=== PATIENT | female | born 1960 | race Caucasian/White ===

== ENCOUNTER 2018-03-14 02:37 | Emergency (ER) | payer SELFPAY ==
[2018-03-14] MEDS ORDERED: predniSONE 20 MG TAB PO ONE (03:05)
[2018-03-14] MEDS ORDERED: SODIUM CHLORIDE 0.9% 1000ML 1,000 ML IVS ONE (03:05)
[2018-03-14] MEDS ORDERED: IPRATROPIUM/ALBUTEROL 3 ML VIAL NEB ONE (03:05)
[2018-03-14] MEDS ORDERED: PROMETHAZINE HCL INJ 25 MG in SODIUM CHLORIDE 0.9% 50ML 50 ML IVPB ONE (03:05)
[2018-03-14] MEDS ORDERED: PROMETHAZINE HCL INJ 25 MG/ML VIAL ONE (03:10)
[2018-03-14] MEDS ORDERED: SODIUM CHLORIDE 0.9% 50ML 50 ML ONE (03:11)
--- NOTE | 2018-03-14 03:12 | ED.PDOC ---
History of Present Illness - General Chief Complaint: GI Problem Stated Complaint: dizzy, N/V/D Time Seen by Provider: 03/14/18 02:53 Source: patient Exam Limitations: no limitations - History of Present Illness Initial Comments: The patient is a 57-year-old female presenting to emergency room secondary to an episode of vertigo that started when she got up in the middle of the night to go use the bathroom. She reports that she was sitting on the toilet and look down and became dizzy all of a sudden. She reports that the room started to spend. She tried to stand up and fell backwards. She caught herself on the shower curtain and did not hurt herself. She subsequently had a couple of episodes of vomiting and now has something of a headache with mild residual dizziness. No confusion. No other neurological changes. She has recently had a viral respiratory tract infection and she does have some wheezing. She does have a history of COPD. She does have a cough. On neurological testing head and pulse exam fails to lateralized to one side. No obvious abnormal nystagmus at this time. No significant vertical skew deviation. She does have increased pressure behind bilateral tympanic membranes. Nares are red with clear rhinorrhea. The patient does have some scattered wheezes. Timing/Duration: 1 hour Severity: moderate Improving Factors: nothing Worsening Factors: movement Associated Symptoms: cough, loss of appetite, nausea/vomiting Allergies/Adverse Reactions: Allergies Aspirin Allergy (Verified 03/14/18 02:57) Codeine Allergy (Verified 03/14/18 02:57) Penicillins Allergy (Verified 03/14/18 02:57) Home Medications: Ambulatory Orders ALPRAZolam [Xanax] 0.25 mg PO PRN PRN 03/14/18 Furosemide [Lasix] 40 mg PO DAILY PRN 03/14/18 Meclizine HCl 25 mg PO Q6H PRN #20 tab 03/14/18 predniSONE [Prednisone] 20 mg PO DAILY #3 tab 03/14/18 Review of Systems - Review of Systems Constitutional: States: malaise EENTM: States: nose congestion Respiratory: States: cough Cardiology: States: no symptoms reported Gastrointestinal/Abdominal: States: nausea, vomiting Genitourinary: States: no symptoms reported Musculoskeletal: States: no symptoms reported Skin: States: no symptoms reported Neurological: States: headache Endocrine: States: no symptoms reported Hematologic/Lymphatic: States: no symptoms reported All other Systems: No Change from Baseline Past Medical History (General) - Patient Medical History Hx Seizures: No Hx Stroke: No Hx Dementia: No Hx Asthma: Yes Hx of COPD: Yes Hx Cardiac Disorders: No Hx Congestive Heart Failure: No Hx Pacemaker: No Hx Hypertension: Yes Hx Thyroid Disease: No Hx Diabetes: No Hx Gastroesophageal Reflux: No Hx Renal Disease: No Hx Cancer: No Hx of HIV: No Hx Hepatitis C: No Hx MRSA: No Surgical History: no surgical history - Vaccination History Hx Tetanus, Diphtheria Vaccination: No Hx Influenza Vaccination: Yes - 2013 Hx Pneumococcal Vaccination: Yes - 2013 - Social History Hx Tobacco Use: Yes Hx Alcohol Use: Yes - occasional Hx Substance Use: No Hx Physical Abuse: No Hx Emotional Abuse: No Family Medical History - Family History Mother Family History: No Known Living Status: Still Living Hx Family Cancer: Yes - newly dx'ed 01/2014 - cholangiocarcinoma Brother Living Status: Still Living Hx Cardiac Disease: Yes - [place] with stents Physical Exam - Physical Exam General Appearance: Alert, No apparent distress Eye Exam: bilateral normal Ears, Nose, Throat: hearing grossly normal, nasal congestion Neck: full range of motion, supple Respiratory: no respiratory distress, no accessory muscle use, wheezing Cardiovascular/Chest: normal peripheral pulses, regular rate, rhythm, no edema Peripheral Pulses: radial,right: 2+, radial,left: 2+ Gastrointestinal/Abdominal: non tender - obese, soft Rectal Exam: deferred Back Exam: no vertebral tenderness Extremity: normal range of motion, non-tender, no pedal edema, normal capillary refill Neurologic: mannequin mounter II-XII nml as tested, alert, normal mood/affect, oriented x 3, other - see history of present illness Skin Exam: normal color Comments: 03/14/18 03:14 Telemetry .CONTINUOUS 03/14/18 04:59 Acetaminophen [Tylenol] 650 mg PO ONCE ONE Laboratory Results - last 24 hr 03/14/18 03/14/18 03/14/18 02:30 02:30 02:30 WBC 12.9 H RBC 5.10 Hgb 16.7 H Hct 50.8 H MCV 99.5 H MCH 32.7 H MCHC 33.0 RDW 14.1 Plt Count 266 MPV 10.0 Absolute Neuts (auto) 8.10 H Absolute Lymphs (auto) 3.70 H Absolute Monos (auto) 0.80 Absolute Eos (auto) 0.20 Absolute Basos (auto) 0.00 Neutrophils % 62.6 Lymphocytes % 28.5 Monocytes % 6.6 Eosinophils % 1.9 Basophils % 0.4 Sodium 141 Potassium 3.8 Chloride 105 Carbon Dioxide 32 H Anion Gap 7.8 L BUN 9 Creatinine 0.60 BUN/Creatinine Ratio 15.0 Random Glucose 102 Serum Osmolality 280.1 Calcium 8.9 Magnesium 2.2 Total Bilirubin 0.6 AST 25 ALT 33 Alkaline Phosphatase 131 H Creatine Kinase 55 CK-MB (CK-2) Not Reportable CK-MB (CK-2) % Not Reportable Troponin I < 0.02 B-Natriuretic Peptide 10.9 Serum Total Protein 7.0 Albumin 3.8 Globulin 3.2 Albumin/Globulin Ratio 1.2 Vital Signs - 24 hr 03/14/18 03/14/18 03/14/18 02:41 03:21 04:00 Temperature 98.7 F Pulse Rate 89 Pulse Rate [ 86 91 H monitor] Respiratory 18 17 16 Rate Blood Pressure 159/84 110/79 [Left Arm] O2 Sat by Pulse 95 100 91 L Oximetry 03/14/18 04:30 Temperature Pulse Rate Pulse Rate [ 86 monitor] Respiratory 18 Rate Blood Pressure 119/95 [Left Arm] O2 Sat by Pulse [address] shows microangiopathic changes only. No evidence of any hemorrhage or hydrocephalus. No evidence of any larger territory infarction. Progress - Progress Progress: 03/14/18 05:01 the patient is a 57-year-old female presenting to emergency room secondary to vertigo. This is most likely due to labyrinthitis giving some vestibular dysfunction, related to a recent viral upper respiratory tract infection. Head CT was reassuring. The patient will be placed on prednisone 40 mg daily for the next 3 days. She does need to remember to wear her oxygen at night. She does have a moderately elevated red blood cell count that likely does correspond to chronic mild hypoxia. I do believe that she would benefit from a formal sleep apnea study. She does need to remember to do her inhalers or breathing treatments at least 3 times a day. She does appear to be in a very mild COPD exacerbation which the steroid should help. Additionally the patient will be written for some meclizine to take as needed for any ongoing dizziness. If an episode of vertigo recurs then she needs to try and not move until it passes. She is to follow back up with her primary care doctor early next week. She will need to have repeat red blood cell counts around a month from now to make sure that the problem was not worsening. If her red blood cell counts continue to rise, she will have to have blood drawn off to prevent complications from that. ER warnings were given. Departure - Departure Clinical Impression: Vertigo, COPD exacerbation, Erythrocytosis due to hypoxemia Disposition: Discharge to Home or Self Care Condition: Fair Departure Forms: ED Discharge - Pt. Copy, Patient Portal Self Enrollment Instructions: Vertigo (a Type of Dizziness) (DC), Labyrinthitis, Polycythemia Vera (DC), Exacerbation of COPD (DC) Diet: diabetic diet Activity: increase activity as tolerated Referrals: NIKI EVERETT [Primary Care Provider] - 1-5 Days Prescriptions: Meclizine HCl 25 mg PO Q6H PRN #20 tab PRN Reason: Dizziness predniSONE [Prednisone] 20 mg PO DAILY #3 tab Home Medications: Ambulatory Orders ALPRAZolam [Xanax] 0.25 mg PO PRN PRN 03/14/18 Furosemide [Lasix] 40 mg PO DAILY PRN 03/14/18 Meclizine HCl 25 mg PO Q6H PRN #20 tab 03/14/18 predniSONE [Prednisone] 20 mg PO DAILY #3 tab 03/14/18 Additional Instructions: the patient is a 57-year-old female presenting to emergency room secondary to vertigo. This is most likely due to labyrinthitis giving some vestibular dysfunction, related to a recent viral upper respiratory tract infection. Head CT was reassuring. The patient will be placed on prednisone 40 mg daily for the next 3 days. She does need to remember to wear her oxygen at night. She does have a moderately elevated red blood cell count that likely does correspond to chronic mild hypoxia. I do believe that she would benefit from a formal sleep apnea study. She does need to remember to do her inhalers or breathing treatments at least 3 times a day. She does appear to be in a very mild COPD exacerbation which the steroid should help. Additionally the patient will be written for some meclizine to take as needed for any ongoing dizziness. If an episode of vertigo recurs then she needs to try and not move until it passes. She is to follow back up with her primary care doctor early next week. She will need to have repeat red blood cell counts around a month from now to make sure that the problem was not worsening. If her red blood cell counts continue to rise, she will have to have blood drawn off to prevent complications from that. ER warnings were given.
--- NOTE | 2018-03-14 03:52 | CT ---
CLINICAL HISTORY: new vertigo, headache COMPARISON: None. TECHNIQUE: CT HEAD WITHOUT IV CONTRAST on 03/14/2018 3:15 AM EVENT SPECIALIST [employer] This exam was performed according to our departmental dose-optimization program, which includes automated exposure control, adjustment of the mA and/or kV according to patient size and/or use of iterative reconstruction technique. FINDINGS: There is no acute hemorrhage, mass effect or midline shift. Cuevas-white differentiation is preserved. There is no hydrocephalus. There is no significant volume loss for age. There are mild patchy hypodensities within the periventricular and subcortical white matter, consistent with microangiopathic ischemic changes. The calvarium is intact. Orbits and globes are unremarkable. The paranasal sinuses are clear. Mastoid air cells are clear. IMPRESSION: No acute intracranial findings. Electronically signed by: Issac Luis MD 03/14/2018 3:51 AM EVENT SPECIALIST [employer] DEMONSTR[employer]
[2018-03-14] MEDS ORDERED: ACETAMINOPHEN 325 MG TAB PO ONE (04:59)
[2018-03-14 05:20] VITALS: TEMP 98.6
[2018-03-14 05:29] VITALS: BP 140/80; O2SAT 92
== END 2018-03-14 05:29 | disposition home or self-care (01) ==
LOC: ER 02:37
DX: R42 Dizziness and giddiness (principal); J44.1 Chronic obstructive pulmonary disease with (acute) exacerbation; R09.02 Hypoxemia; D75.1 Secondary polycythemia; I10 Essential (primary) hypertension; Z99.81 Dependence on supplemental oxygen; Z87.891 Personal history of nicotine dependence; Z79.899 Other long term (current) drug therapy; Z88.6 Allergy status to analgesic agent; Z88.5 Allergy status to narcotic agent; Z88.0 Allergy status to penicillin
CPT/HCPCS: 70450; 80053; 82550; 82553; 83735; 83880; 84484; 85025; 94640; A4216; J2550; J7030; J7512; J7620

== ENCOUNTER → 2018-07-16 | Outpatient (CLI) | payer OTHER ==
--- NOTE | 2018-07-19 13:43 | MRI ---
EXAM DESCRIPTION: Lumbar Spine w/o Contrast : Magnetic Resonance Imaging. CLINICAL HISTORY: PAIN. Lumbar. COMPARISON: None. TECHNIQUE: Multiplanar, multiple standard sequences, non contrast MRI, lumbar spine. FINDINGS: L5-S1: Normal signal in the disc and disc space preserved. Posterior elements unremarkable. Canal is patent and minimal narrowing of the bilateral foramina. L4-L5: Disc desiccation with disc space preserved. No posterior bulging. Facet arthrosis and hypertrophy on the right and bilateral flavum ligament hypertrophy with mild canal narrowing. Bilateral moderate foraminal narrowing. L3-L4: Disc desiccation and disc space preserved. Anterior Modic type II superior L4 endplate changes. Hypertrophic arthropathy left facet and bilateral flavum ligament hypertrophy. Mild canal narrowing. Bilateral mild foraminal narrowing. L2-L3: Normal signal in the disc with disc space preserved. Posterior elements unremarkable. Canal and foramina are patent. L1-L2: Normal signal in the disc. Anterior Modic type II endplate reactive changes and anterior endplate ridging. Mid and posterior disc space preserved. Trace posterior disc bulge. Bilateral foramina are patent. Conus terminates just below the disc space. T12-L1: Normal signal in the disc with disc space preserved. Posterior elements are unremarkable. Canal and foramina are patent. Alignment is unremarkable. Paravertebral soft tissues unremarkable. Normal marrow signal in the remaining vertebral bodies and the posterior elements. Vertebral bodies are not compressed at any level. IMPRESSION: 1. Desiccation of the L4-5 disc with no significant bulging. Hypertrophy of the posterior elements with mild canal narrowing and bilateral moderate foraminal narrowing. 2. Desiccation of the L3-4 disc with anterior tiny moderate spondylosis superior L4 endplate. Hypertrophy of the posterior elements with mild canal and bilateral foraminal narrowing. 3. Anterior moderate spondylosis L1-L2 with minimal anterior disc bulging tiny posterior bulge. No significant canal or foraminal narrowing. Electronically signed by: Ryan Berman MD 07/19/2018 1:41 PM CDT
== END ==
LOC: MRI 11:02
PROVIDERS: ATTEND Psychiatry & Neurology Neurology
DX: M51.16 Intervertebral disc disorders with radiculopathy, lumbar region (principal); M47.896 Other spondylosis, lumbar region

== ENCOUNTER → 2018-11-19 | Outpatient (CLI) | payer OTHER | LOC: CT 13:41 | PROVIDERS: ATTEND Family Medicine | DX: Z87.891 Personal history of nicotine dependence (principal); R91.8 Other nonspecific abnormal finding of lung field; J43.9 Emphysema, unspecified ==

== ENCOUNTER → 2018-11-30 | Outpatient (CLI) | payer OTHER ==
--- NOTE | 2018-12-01 11:23 | CT ---
EXAM DESCRIPTION: Abdomen w/wo Contrast: Computed Tomography. CLINICAL HISTORY: ADRENAL MASS. Left adrenal gland. Right hilar lung mass on lung screening low-dose CT scan. Adenoma versus lung metastasis. COMPARISON: Low-dose chest CT scan for lung cancer screening 11/19/2018. TECHNIQUE: Spiral-axial scans at 5 x 5 mm intervals, from the diaphragms through the upper pelvis, before and after nonionic IV contrast. No oral contrast. Coronal and sagittal 2.0 mm reconstructions. 2 mm 15 minute Delayed scans, liver through the upper pelvis. No adverse reactions. DLP 1741.04 mGy-cm. This exam was performed according to our departmental CT dose-optimization program which includes automated exposure control, adjustment of the mA and/or kV according to patient size and/or use of iterative reconstruction technique; to reduce radiation dose to as low as reasonably achievable (ALARA). FINDINGS: Liver, stomach, adrenal glands, and spleen: Left adrenal gland homogeneous round mass measuring 2.7 x 2.4 cm. Hounsfield density precontrast -18. Homogeneous enhancement with Hounsfield density +26. On 15 minute delayed images, the mass density is -1. The absolute percentage washout is +312% which is greater than 60%, indicating an adenoma. Long axis right lobe liver 19.4 cm but no focal lesions. Stomach and solid organs negative. Lung bases and pleura: Unremarkable. Pancreas/Gallbladder/Ducts: Minimal sludge in the neck of the gallbladder. No surrounding fluid. Duct and pancreas unremarkable. Kidneys and proximal Ureters: Negative. Mesentery: Unremarkable. Aorta: Small periaortic nodes. Minimal atherosclerotic calcification. Outer caliber unremarkable. Small Bowel: Minimal distention proximally but no air-fluid levels. Terminal Ileum/Cecum: TIA unremarkable with incomplete visualization of the cecum. Appendix not seen. No inflammatory changes. Colon: Moderate fecal matter in the proximal colon. No air-fluid levels. No complications. Spine: Minimal spondylosis L5-S1 and L1-2, and included thoracic disc spaces. Abdominal Wall/Back Soft Tissues: Diastases at the umbilicus but not containing bowel. IMPRESSION: 1. 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 No surrounding masses or fatty stranding. 2. Liver is enlarged but no focal lesions. Minimal sludge in the neck of the gallbladder. Correlate with clinical findings. 3. No peritoneal or retroperitoneal mass, no inflammatory changes, no free fluid in the abdomen. Electronically signed by: Ryan Berman MD 12/01/2018 11:22 AM CDT
== END ==
LOC: CT 08:23
PROVIDERS: ATTEND Family Medicine
DX: D35.02 Benign neoplasm of left adrenal gland (principal); R16.0 Hepatomegaly, not elsewhere classified

== ENCOUNTER → 2019-03-17 | Outpatient (CLI) | payer OTHER | LOC: SOLHH 11:34 | PROVIDERS: ATTEND Family Medicine | DX: C34.90 Malignant neoplasm of unspecified part of unspecified bronchus or lung (principal); R60.9 Edema, unspecified; J44.9 Chronic obstructive pulmonary disease, unspecified; I10 Essential (primary) hypertension ==